=== PATIENT | male | born 1980 | race Caucasian/White ===

== ENCOUNTER 2022-08-10 04:03 | Inpatient (IN) | payer BC, SELFPAY ==
[2022-08-10] MEDS ORDERED: Magnesium 2 GM/50 ML BAG (IN WATER) ONE (04:37)
[2022-08-10 05:08] LABS: #Eosinphils 0.2 thou/uL (0.0-0.7); #Monocytes 0.5 thou/uL (0.11-0.59); #Neutrophils 3.3 thou/uL (1.40-6.50); %Basophils 0.5 % (0.0-1.0); %Eosinophils 3.3 % (0.0-10.0); %Lymphocytes 36.6 % (21.0-51.0); %Monocytes 8.5 % (0.0-10.0); %Neutrophils 50.8 % (42.0-75.0); Hemoglobin 14.2 g/dL (14.0-18.0); Mean Corpuscular HGB CONC 33.4 g/dL (32.0-36.0); Mean Corpuscular Hemoglobin 30.7 pg (27.0-31.0); Mean Platelet Volume 10.5 fL (7.4-10.4); Platelet Count 237 10x3/uL (130-400); RBC Distribution Width 13.1 % (11.5-14.5); Red Blood Cell (RBC) Count 4.62 mill/uL (4.70-6.10); White Blood Cell (WBC) Count 6.4 10x3/uL (4.8-10.8)
[2022-08-10 05:31] LABS: ALT (SGPT) 9 U/L (8-55); AST (SGOT) 14 U/L (5-34); Albumin 3.4 g/dL (3.5-5.0); Alkaline Phosphatase 71 U/L (40-110); Anion Gap 17 mmol/L (10-20); BUN (Urea Nitrogen) 17 mg/dL (8.9-20.6); Bilirubin, Total 0.8 mg/dL (0.2-1.2); Calc. Creatinine Clearance 0 mL/min (70-130); Calcium 8.5 mg/dL (7.8-10.44); Carbon Dioxide 16 mmol/L (22-29); Chloride 98 mmol/L (98-107); Estimated GFR 78; Globulin 3.3 g/dL (2.4-3.5); Glucose 330 mg/dL (70-105); Magnesium 1.8 mg/dL (1.6-2.6); Potassium 5.2 mmol/L (3.5-5.1); Protein, Total 6.7 g/dL (6.0-8.3); Sodium 126 mmol/L (136-145)
[2022-08-10 06:09] LABS: Clarity Clear (Clear); Specific Gravity, Urine 1.018 (1.002-1.036)
[2022-08-10 06:10] LABS: Bacteria/HPF None Seen HPF (None Seen); Bilirubin Negative (Negative); Blood, Urine Negative (Negative); CAUTI Indications for Culture Alt mental st,lethar; Glucose, Urine (Dipstick) Greater than 1000 mg/dL (Negative); Ketone, Urine 100 mg/dL (Negative); Leukocyte Negative Leu/uL (Negative); Nitrite Negative (Negative); Protein, Urine (Dipstick) Negative (Neg-Trace); RBC/HPF 0-3 HPF (0-3); Squamous Epithelial None Seen HPF (0-3); Urobilinogen Normal mg/dL (Less than 2); WBC/HPF None Seen HPF (0-3)
[2022-08-10 06:11] LABS: Urine Culture Reflex No No
[2022-08-10 06:28] LABS: Actual Bicarbonate (HCO3v) 17.4 mEq/L (22-28); Base Excess -10.2 mEq/L (-2.0 to +3.0); Calcium, Ionized (venous) 1.05 mmol/L (1.16-1.32); Chloride (VBG) 99 mmol/L (98-106); Hematocrit-VBG 45 % (42.0-52.0); Hemoglobin (Hb) 15.4 g/dL (13.2-17.3); Potassium (VBG) 5.21 mmol/L (3.70-5.30); Sodium 128.7 mmol/L (133-146); pH (venous) 7.211 (7.32-7.43)
[2022-08-10] MEDS ORDERED: Insulin Regular 300 UNITS/3 ML VIAL ONE (06:35)
[2022-08-10] MEDS ORDERED: INSULIN REGULAR IN 0.9 % NACL 100 UNITS/100 ML BAG ONE (06:41)
[2022-08-10] MEDS ORDERED: NS 0.9% w/ 20 MEQ KCL 1,000 ML IV SCH (06:45)
[2022-08-10] MEDS ORDERED: NS 0.9% w/ 20 MEQ KCL 1,000 ML/1,000 ML BAG IV PRN ×2 (10:30)
[2022-08-10] MEDS ORDERED: D5 1/2 NS w/20 mEq KCL 1,000 ML IV PRN ×2 (10:30→10:50)
[2022-08-10] MEDS ORDERED: Ondansetron PF 4 MG/2 ML Vial IVP PRN (10:30)
[2022-08-10] MEDS ORDERED: Glucagon 1 MG/ML KIT IM PRN (10:30)
[2022-08-10] MEDS ORDERED: Dextrose 5 %-0.45 % NaCl 1,000 ML IV PRN ×2 (10:30→10:50)
[2022-08-10] MEDS ORDERED: Dextrose 5% in Water 1,000 ML IV PRN (10:30)
[2022-08-10] MEDS ORDERED: Acetaminophen 325 MG TAB PO PRN (10:30)
[2022-08-10] MEDS ORDERED: HUMULIN R 100 UNITS in Sodium Chloride 0.9% 100 ML IVPB SCH ×3 (10:30→15:15)
[2022-08-10] MEDS ORDERED: Ondansetron ODT 4 MG TAB SL PRN (10:30)
[2022-08-10] MEDS ORDERED: Dextrose 50% Abboject 50 ML SYRINGE SLOW IVP PRN ×2 (10:30→10:50)
[2022-08-10] MEDS ORDERED: Sodium Chloride 0.9% 1,000 ML IV PRN ×8 (10:30→10:50)
[2022-08-10] MEDS ORDERED: NS 0.9% w/ 20 MEQ KCL 1,000 ML IV PRN ×2 (10:50)
[2022-08-10] MEDS ORDERED: Electrolyte Replacement Protocol 1 EACH IVPB SCH (10:50)
[2022-08-10 11:46] LABS: Anion Gap 11 mmol/L (10-20); BUN (Urea Nitrogen) 16 mg/dL (8.9-20.6); Calc. Creatinine Clearance 0 mL/min (70-130); Carbon Dioxide 18 mmol/L (22-29); Chloride 104 mmol/L (98-107); Estimated GFR 95; Glucose 265 mg/dL (70-105); Potassium 4.2 mmol/L (3.5-5.1); Sodium 129 mmol/L (136-145)
[2022-08-10 11:54] LABS: Phosphorus 2.1 mg/dL (2.3-4.7)
[2022-08-10] MEDS ORDERED: Magnesium 2 GM/50 ML(in water) 2 GM in Premix Bag 1 BAG IVPB SCH (14:00)
[2022-08-10 15:50] LABS: Anion Gap 9 mmol/L (10-20); BUN (Urea Nitrogen) 14 mg/dL (8.9-20.6); Calc. Creatinine Clearance 0 mL/min (70-130); Calcium 7.9 mg/dL (7.8-10.44); Carbon Dioxide 22 mmol/L (22-29); Chloride 107 mmol/L (98-107); Estimated GFR 111; Glucose 154 mg/dL (70-105); Potassium 4.2 mmol/L (3.5-5.1); Sodium 134 mmol/L (136-145)
[2022-08-10] MEDS ORDERED: HumuLIN 70/30 100 Unit/ ml Vial SC SCH (17:15)
[2022-08-10] MEDS: Sodium Chloride 0.45% 1,000 ML IV SCH (18:30)
[2022-08-10] MEDS: HumaLOG 300 UNITS/3 ML VIAL SC PRN (23:53)
[2022-08-11] MEDS: Sodium Chloride 0.45% 1,000 ML IV SCH ×2 (01:54→08:32)
[2022-08-11 04:40] LABS: Anion Gap 4 mmol/L (10-20); BUN (Urea Nitrogen) 11 mg/dL (8.9-20.6); Calc. Creatinine Clearance 0 mL/min (70-130); Carbon Dioxide 22 mmol/L (22-29); Chloride 115 mmol/L (98-107); Estimated GFR 111; Glucose 180 mg/dL (70-105); Potassium 4.1 mmol/L (3.5-5.1); Sodium 137 mmol/L (136-145)
[2022-08-11] MEDS ORDERED: Magnesium 2 GM/50 ML(in water) 2 GM in Premix Bag 1 BAG IVPB SCH (08:00)
[2022-08-11] MEDS ORDERED: Potassium Phosphate 15 MMOL in Sodium Chloride 0.9% 100 ML IVPB SCH (08:00)
[2022-08-11] MEDS ORDERED: HumuLIN 70/30 100 Unit/ ml Vial SC SCH (09:00)
[2022-08-11] MEDS: Acetaminophen 325 MG TAB PO PRN ×2 (09:20→14:43)
[2022-08-11] MEDS: HumaLOG 300 UNITS/3 ML VIAL SC PRN ×2 (12:35→15:52)
[2022-08-11] MEDS: HumuLIN 70/30 100 Unit/ ml Vial SC SCH (21:16)
[2022-08-12 06:27] LABS: #Eosinphils 0.2 thou/uL (0.0-0.7); #Monocytes 0.6 thou/uL (0.11-0.59); #Neutrophils 2.6 thou/uL (1.40-6.50); %Basophils 0.2 % (0.0-1.0); %Lymphocytes 35.4 % (21.0-51.0); %Monocytes 10.7 % (0.0-10.0); %Neutrophils 50.3 % (42.0-75.0); Hemoglobin 13.1 g/dL (14.0-18.0); Mean Corpuscular HGB CONC 34.2 g/dL (32.0-36.0); Mean Corpuscular Hemoglobin 30.3 pg (27.0-31.0); Mean Corpuscular Volume 88.5 fl (78.0-98.0); Mean Platelet Volume 10.1 fL (7.4-10.4); Platelet Count 222 10x3/uL (130-400); RBC Distribution Width 13.1 % (11.5-14.5); Red Blood Cell (RBC) Count 4.33 mill/uL (4.70-6.10); White Blood Cell (WBC) Count 5.3 10x3/uL (4.8-10.8)
[2022-08-12] MEDS: HumaLOG 300 UNITS/3 ML VIAL SC PRN (06:36)
[2022-08-12 07:39] LABS: ALT (SGPT) 10 U/L (8-55); AST (SGOT) 14 U/L (5-34); Alkaline Phosphatase 61 U/L (40-110); Anion Gap 12 mmol/L (10-20); BUN (Urea Nitrogen) 10 mg/dL (8.9-20.6); Bilirubin, Total 0.3 mg/dL (0.2-1.2); Calc. Creatinine Clearance 137 mL/min (70-130); Calcium 8.4 mg/dL (7.8-10.44); Carbon Dioxide 23 mmol/L (22-29); Chloride 106 mmol/L (98-107); Estimated GFR 104; Globulin 2.7 g/dL (2.4-3.5); Glucose 242 mg/dL (70-105); Magnesium 1.7 mg/dL (1.6-2.6); Phosphorus 3.2 mg/dL (2.3-4.7); Protein, Total 5.7 g/dL (6.0-8.3); Sodium 137 mmol/L (136-145)
[2022-08-12] MEDS ORDERED: Magnesium 2 GM/50 ML(in water) 2 GM in Premix Bag 1 BAG IVPB SCH (08:00)
[2022-08-12] MEDS: HumuLIN 70/30 100 Unit/ ml Vial SC SCH ×2 (08:49→20:16)
[2022-08-13 07:33] LABS: #Eosinphils 0.1 thou/uL (0.0-0.7); #Monocytes 0.7 thou/uL (0.11-0.59); #Neutrophils 3.6 thou/uL (1.40-6.50); %Basophils 0.3 % (0.0-1.0); %Eosinophils 1.8 % (0.0-10.0); %Lymphocytes 29.3 % (21.0-51.0); %Monocytes 10.5 % (0.0-10.0); %Neutrophils 57.8 % (42.0-75.0); Hemoglobin 13.1 g/dL (14.0-18.0); Mean Corpuscular HGB CONC 33.8 g/dL (32.0-36.0); Mean Corpuscular Hemoglobin 30.5 pg (27.0-31.0); Mean Corpuscular Volume 90.2 fl (78.0-98.0); Mean Platelet Volume 10.4 fL (7.4-10.4); Platelet Count 216 10x3/uL (130-400); RBC Distribution Width 13.2 % (11.5-14.5); White Blood Cell (WBC) Count 6.2 10x3/uL (4.8-10.8)
[2022-08-13 07:58] LABS: Anion Gap 12 mmol/L (10-20); BUN (Urea Nitrogen) 11 mg/dL (8.9-20.6); Calc. Creatinine Clearance 150 mL/min (70-130); Calcium 8.4 mg/dL (7.8-10.44); Carbon Dioxide 26 mmol/L (22-29); Chloride 104 mmol/L (98-107); Estimated GFR 112; Glucose 206 mg/dL (70-105); Magnesium 1.6 mg/dL (1.6-2.6); Phosphorus 3.3 mg/dL (2.3-4.7); Potassium 4.1 mmol/L (3.5-5.1); Sodium 138 mmol/L (136-145)
[2022-08-13] MEDS ORDERED: Magnesium 2 GM/50 ML(in water) 2 GM in Premix Bag 1 BAG IVPB SCH (08:15)
[2022-08-13] MEDS: HumuLIN 70/30 100 Unit/ ml Vial SC SCH ×2 (08:36→20:22)
[2022-08-13] MEDS: HumaLOG 300 UNITS/3 ML VIAL SC PRN ×2 (13:09→20:22)
[2022-08-13] MEDS: Acetaminophen 325 MG TAB PO PRN (20:30)
[2022-08-14 08:04] LABS: Anion Gap 11 mmol/L (10-20); BUN (Urea Nitrogen) 12 mg/dL (8.9-20.6); Calc. Creatinine Clearance 145 mL/min (70-130); Calcium 8.5 mg/dL (7.8-10.44); Carbon Dioxide 27 mmol/L (22-29); Chloride 99 mmol/L (98-107); Estimated GFR 110; Glucose 200 mg/dL (70-105); Potassium 4.3 mmol/L (3.5-5.1); Sodium 133 mmol/L (136-145)
[2022-08-14] MEDS: HumuLIN 70/30 100 Unit/ ml Vial SC SCH (09:23)
[2022-08-14] MEDS ORDERED: Dextrose 5% in Water 1,000 ML IV PRN (11:34)
[2022-08-14] MEDS: cefTRIAXone\\ROCEPHIN 2 GM in Sodium Chloride 0.9% 100 ML IVPB SCH (11:59)
[2022-08-14] MEDS: Acetaminophen 325 MG TAB PO PRN (12:25)
[2022-08-14] MEDS: HumaLOG 300 UNITS/3 ML VIAL SC PRN ×2 (12:26→18:17)
[2022-08-14] MEDS ORDERED: VANCOMYCIN 2 GRAM/500 ML BAG 2 GM in Premix Bag 1 BAG IVPB SCH (13:00)
[2022-08-14] MEDS ORDERED: HumuLIN 70/30 100 Unit/ ml Vial SC SCH (21:00)
[2022-08-15] MEDS: HumaLOG 300 UNITS/3 ML VIAL SC PRN ×3 (05:03→18:14)
[2022-08-15 06:53] LABS: Anion Gap 12 mmol/L (10-20); BUN (Urea Nitrogen) 12 mg/dL (8.9-20.6); Calc. Creatinine Clearance 123 mL/min (70-130); Carbon Dioxide 26 mmol/L (22-29); Chloride 98 mmol/L (98-107); Estimated GFR 91; Glucose 326 mg/dL (70-105); Sodium 131 mmol/L (136-145)
[2022-08-15] MEDS: HumuLIN 70/30 100 Unit/ ml Vial SC SCH (08:24)
[2022-08-15 12:02] LABS: Vancomycin, Trough 3.4 ug/mL
[2022-08-15] MEDS: cefTRIAXone\\ROCEPHIN 2 GM in Sodium Chloride 0.9% 100 ML IVPB SCH (12:19)
[2022-08-15] MEDS ORDERED: Vancomycin 1.5 GRAM/300 ML BAG 1.5 GM in Premix Bag 1 BAG IVPB SCH ×2 (13:00→21:00)
[2022-08-15] MEDS ORDERED: VANCOMYCIN 2 GRAM/500 ML BAG 2 GM in Premix Bag 1 BAG IVPB SCH (13:00)
[2022-08-15] MEDS ORDERED: Glucagon 1 MG/ML KIT IM PRN (15:31)
[2022-08-15] MEDS ORDERED: Dextrose 5% in Water 1,000 ML IV PRN (15:31)
[2022-08-15] MEDS ORDERED: Dextrose 50% Abboject 50 ML SYRINGE SLOW IVP PRN (15:31)
[2022-08-15] MEDS: Amoxicillin/Potassium Clav 875 MG TAB PO SCH (20:40)
[2022-08-15] MEDS ORDERED: HumuLIN 70/30 100 Unit/ ml Vial SC SCH (21:00)
[2022-08-16] MEDS: Amoxicillin/Potassium Clav 875 MG TAB PO SCH (08:19)
[2022-08-16] MEDS: HumuLIN 70/30 100 Unit/ ml Vial SC SCH (08:21)
[2022-08-16 12:08] VITALS: BMI 29.7
[2022-08-16] MEDS: HumaLOG 300 UNITS/3 ML VIAL SC PRN ×2 (12:18→17:04)
[2022-08-16 17:30] VITALS: BP 135/93; TEMP 97.6
== END 2022-08-16 17:47 | disposition home or self-care (01) | DRG 638 ==
LOC: ERS 04:03 → IMCU/EMU 06:37 → T4-B 08-11 16:28
PROVIDERS: ADMIT Internal Medicine; ATTEND Internal Medicine
PROC: 4A043R1 Measurement of Venous Saturation, Peripheral, Percutaneous Approach (ICD-10-PCS; principal; 2022-08-10)
DX: E11.10 Type 2 diabetes mellitus with ketoacidosis without coma (principal); E87.1 Hypo-osmolality and hyponatremia; L03.113 Cellulitis of right upper limb; F17.210 Nicotine dependence, cigarettes, uncomplicated; F12.10 Cannabis abuse, uncomplicated; F10.90 Alcohol use, unspecified, uncomplicated; F15.10 Other stimulant abuse, uncomplicated; E87.5 Hyperkalemia; F19.10 Other psychoactive substance abuse, uncomplicated; Z88.5 Allergy status to narcotic agent; Z79.899 Other long term (current) drug therapy; Z59.00 Homelessness unspecified; Z98.890 Other specified postprocedural states; Z79.4 Long term (current) use of insulin
CPT/HCPCS: 36415; 36416; 70450; 80048; 80053; 80202; 81001; 82010; 82805; 83735; 84100; 84484; 85025; 87040; 93005; 96365; J0696; J1815; J3370; J3475; J3480; J3490; J7050